=== PATIENT | female | born 1970 | race African-American/Black ===

== ENCOUNTER 2024-01-23 04:11 | Day surgery (SDC) | payer BC, OTHER ==
[2024-01-21 14:46] VITALS: BMI 24.7
[2024-01-23] MEDS ORDERED: TRIAMCINOLONE ACET 40MG/1ML VIAL ONE (08:09)
[2024-01-23] MEDS ORDERED: LIDOCAINE HCL/PF 1% SDV 5ML VIAL ONE (08:10)
[2024-01-23] MEDS ORDERED: BUPIVACAINE HCL/PF 0.5% (5MG/ML) 10 ML VIAL ONE (08:10)
[2024-01-23] MEDS ORDERED: ACETAMINOPHEN 500 MG TABLET (FP) PO PRN (08:59)
[2024-01-23 14:06] VITALS: RESP 20
[2024-01-23 14:21] VITALS: TEMP 97.2
[2024-01-23 15:23] VITALS: BP 112/65; PULSE 80
== END 2024-01-23 14:15 | disposition home or self-care (01) ==
LOC: JASU-SURG 04:11
PROVIDERS: ATTEND Pain Medicine Pain Medicine
PROC: 3E0U3BZ Introduction of Anesthetic Agent into Joints, Percutaneous Approach (ICD-10-PCS; 2024-01-23)
PROC: 3E0U33Z Introduction of Anti-inflammatory into Joints, Percutaneous Approach (ICD-10-PCS; principal; 2024-01-23 13:49)
DX: M53.3 Sacrococcygeal disorders, not elsewhere classified (principal)
CPT/HCPCS: 76000-TC-FY; 81025